=== PATIENT | female | born 1970 | race Caucasian/White ===

== ENCOUNTER 2017-01-08 08:07 | Inpatient (IN) ==
[2017-01-08] MEDS ORDERED: Albuterol 2.5 MG/3 ML NEBULIZER IH ONE ×2 (08:29→11:01)
[2017-01-08] MEDS ORDERED: Lidocaine -MPF 1% 2 ML VIAL ID ONE (08:29)
[2017-01-08] MEDS ORDERED: Ringers Solution, Lactated 1,000 ML IVC SCH ×2 (08:30→11:15)
[2017-01-08] MEDS ORDERED: Insulin Human Regular 10 UNIT in 0.9 % Sodium Chloride 10 ML IV ONE (08:41)
--- NOTE | 2017-01-08 09:07 | Anesthesia Evaluation PreOp ---
Date of Encounter: 01/08/17 Time of Encounter: 09:05 - Past History Planned Operation: MIHIR-BSO Cardiac History: MD (MD 2015), Cardiac Surgery (Cabg x 3 11/2015) Pulmonary History: Denies Any Significant HX MIX CHEMIST History: Denies Any Significant HX Other Medical History: Diabetes Type II Anesthesia History: No Prior Anesthetic Complications, Past Anesthesia : No Test: Negative (01/01/2017) Alcohol Use: none Drug use: none Medications and Allergies Aspirin [Lo-Dose Aspirin EC] 81 mg PO DAILY 11/28/16 [History] Atorvastatin Calcium [Lipitor] 80 mg PO HS 11/28/16 [History] Carvedilol [Coreg] 6.25 mg PO BIDWM 11/28/16 [History] Glimepiride [Amaryl] 2 mg PO 0800 11/28/16 [History] Lisinopril [Zestril] 5 mg PO DAILY 11/28/16 [History] Metformin HCl [Glucophage] 1,000 mg PO BID 11/28/16 [History] Nitroglycerin [Nitrostat] 0.4 mg SL Q5M PRN 11/28/16 [History] Sertraline [Zoloft] 50 mg PO DAILY 11/28/16 [History] Topiramate [Topamax] 25 mg PO BID 11/28/16 [History] Ibuprofen [Motrin] 600 mg PO Q6HR PRN 01/08/17 [History] Allergies formula, sp.metab. with iron,methionine-fr [From HCY 1 Powder] Adverse Reaction (Unverified 01/08/17 09:14) Anaphylaxis formula, special metabolic with iron [From HCY 1 Powder] Adverse Reaction (Unverified 01/08/17 09:14) Anaphylaxis - Meds/Allergy Pre-op Review Medications Reviewed: Yes Allergies Reviewed: Yes Beta Blockers on Current Med List: Yes Anesthesia Results - Labs Laboratory Tests 11/22/16 01/01/17 01/01/17 10:06 14:45 14:45 WBC 12.9 H Hgb 16.7 H Hct 50.9 H Plt Count 246 Sodium 138 Potassium 3.9 Chloride 104 Carbon Dioxide 23 BUN 6 L Creatinine 0.84 Hemoglobin A1c 8.4 H Serum , Qual 01/01/17 14:45 WBC Hgb Hct Plt Count Sodium Potassium Chloride Carbon Dioxide BUN Creatinine Hemoglobin A1c Serum , Qual Negative Stress echo 01/07/2027 No ischemia EF-60% - Imaging EKG: image reviewed (SR) Anesthesia Exam O2 Sat Height 1.68 m Height 1.68 m Weight 93.44 kg Weight 93.44 kg O2 Sat by Pulse Oximetry 97 O2 Sat by Pulse Oximetry 97 Vital Signs Temp Pulse Resp BP Pulse Ox 98.4 F 85 18 177/106 97 01/08/17 08:41 01/08/17 08:41 01/08/17 08:41 01/08/17 08:41 01/08/17 08:41 Blood glucose: 359 (232 after 10 u reg insulin) Height: 5'6'' Weight: 206# NPO (# of Hours): > 8 hrs Pain Scale: 0 Pain Scale Used: Numeric (1 - 10) - HEENT Pupil (Motor): Pupils equal, EOMI Mallampati: III Teeth: Poor dentition Oral Opening: Greater than 3 - MIX CHEMIST LOC: Oriented MIX CHEMIST Motor: Normal RUE, Normal LUE, Normal RLE, Normal LLE, Normal Face MIX CHEMIST Sensory: Normal: RUE, LUE, RLE, LLE, Face - Cardiac Rhythm: Regular Murmur: None JVD: No Carotid Bruit: No - Pulmonary Breath Sounds: bilateral Clear Respiratory Effort: Symmetrical Anesthesia Assess/Plan Modified Cem Scale for Level of Consciousness: Cooperative, oriented, and tranquil Anesthetic Plan: General Autologous Blood: Yes Monitoring Plan: Standard Monitors Recovery Plan: PACU
[2017-01-08] MEDS ORDERED: Lidocaine -MPF 4% 5 ML AMPUL ONE (09:10)
[2017-01-08] MEDS ORDERED: *HR* Propofol 200 MG/20 ML VIAL IVP ONE (09:10)
[2017-01-08] MEDS ORDERED: *HR* HYDROmorphone 2 MG/ML SYRINGE ONE (09:10)
[2017-01-08] MEDS ORDERED: Lidocaine -MPF 2% 2 ML VIAL ONE (09:10)
[2017-01-08] MEDS ORDERED: *HR* FentaNYL (PF) 100 MCG/2 ML VIAL ONE (09:10)
[2017-01-08] MEDS ORDERED: *HR* Rocuronium Bromide 50 MG/5 ML VIAL ONE ×2 (09:10→12:51)
[2017-01-08] MEDS ORDERED: *HR* Midazolam HCl 2 MG/2 ML VIAL ONE (09:10)
[2017-01-08] MEDS ORDERED: CeFAZolin Pre 2,000 MG/100 ML 2,000 MG/100 ML BAG IVPB ONE (09:51)
--- NOTE | 2017-01-08 09:59 | History & Physical Report ---
Date of Encounter: 01/08/17 Time of Encounter: 09:59 24 Hour HP Update - Instructions Instructions: If the History and Physical is less than 30 days old and was completed prior to A.M. admission and or procedure and has NOT been updated on calendar day of procedure please complete this update prior to performing procedure. - Update Patient reports changes in Medical Condition: No Changes in examination, assessment, or condition: No Changes in Medication: No Preop tests/diagnostics Reviewed: Yes Surgery Remains Indicated: Yes Consent for Planned Operative Procedure(s) Verified: Yes - Pre-Operative Checklist Preoperative Checklist Indicated: Yes Prophylactic Antibiotic Ordered: Yes Home Medications Include Beta Anibal: No Beta Anibal Taken Today (Day of Surgery): No Beta Anibal Taken Yesterday (Day Prior to Surgery): No Is VTE Prophylaxis Indicated?: Yes
[2017-01-08] MEDS ORDERED: Dexamethasone 4 MG/ML VIAL ONE (10:43)
[2017-01-08] MEDS ORDERED: Ondansetron 4 MG/2 ML VIAL ONE (10:43)
[2017-01-08] MEDS ORDERED: *HR* Labetalol 100 MG/20 ML MDV IVP PRN (11:01)
[2017-01-08] MEDS ORDERED: *HR* HYDROmorphone (PF) 1 MG/ML SYRINGE IVP PRN (11:01)
[2017-01-08] MEDS ORDERED: Naloxone 0.4 MG/ML INJ IVP PRN ×2 (11:01→14:44)
[2017-01-08] MEDS ORDERED: *HR* Meperidine 25 MG/ML SYRINGE IVP PRN (11:01)
[2017-01-08] MEDS ORDERED: Ondansetron 4 MG/2 ML VIAL IVP ONE (11:01)
[2017-01-08] MEDS ORDERED: Neostigmine Methylsulfate 3 MG/3 ML SYRINGE ONE (11:10)
--- NOTE | 2017-01-08 14:41 | OB/GYN Procedure Note ---
OB-SHIP LINER: Procedure - Diagnosis Date of procedure: 01/08/17 Pre-op diagnosis: pelvic pain, severe pelvic adhesions, hydrosalpinx, ovarian cyst Post-op diagnosis: same - Procedure Procedure: ABDI, RSO, cysto Surgeon: Bryan Paniagua Dramatic Art Teacher: Noam Schmidt Anesthesia Type: General Estimated blood loss (cc): 50 Fluids: crystalloid Procedure Complications: none Specimens collected: right ovary, cyst and tube, uterus, partial left tube Disposition: floor Findings: severe pelvic adhesions connecting bowel to uterus, ovaries and tubes , large right ovarian cyst, bilateral hydrosalpinx, bladder adherent to uterus Narrative: The patient was placed in the dorsal lithotomy position after an adequate level of general anesthesia was obtained and after appropriate informed consent had been obtained. The Anthony was draining clear urine from the bladder. After the patient was prepped and draped in the usual sterile manner, a Pfannenstiel incision was made and the subcutaneous tissue was incised until the level of the rectus fascia was reached. A nkechi was made in the fascia. This was extended the length of the incision using Alvarado scissors. The recti muscles were to gain adequate entry into the abdomen. We explored the abdomen. The bowels grossly appeared normal. There was a large ovarian cyst that was noted up to the abdomen. I explored the pelvic region to feel for the uterus. The uterus was noted to be very adherent to the bladder. I also noted that she had bilateral hydrosalpinx and the left ovary was severely adherent to the side wall. There were multiple adhesions communicating with the bowel on the right ovary as well. The Adri Lim retractor was set up before the hysterectomy was started. A emily clamp was placed at the base of the ovarian cyst along with the ovary. The ligasure device was then clamped at the IP ligament and the ovary/cyst was coagulated and cut. The specimen was sent to the pathologist. At this point, we were able to get more visualization into the pelvis to perform the hysterectomy. The right tube and the right round ligament was clamped with the Ligasure device , coagulated and cut. The anterior leaf of the broad ligament was cut using Metzenbaum scissors. I tried to dissect the bladder that was adherent to the anterior aspect of the uterus but I was unable to despite multiple attempts. I turned my attention to the left side. The ligasure device was clamped on the round ligament, coagulated and cut. A window was made on the broad ligament and the utero-ovarian ligament along with the tube was clamped, cut and coagulated freeing the ovaries. I tried to dissect off the bladder but I was unsuccessful. I decided that it will be best to perform a supracervical hysterectomy. The uterine arteries were then skeletonized, clamped at the level of the cervical os using the Ligasure device and cut. The cervix was then amputated and figure of eight sutures of 0-vicryl was used to obtain hemostasis. I performed a cystoscopy after injecting methylene blue but after 30mins, I could not visualize ureteral jets. I called Dr Newell from Urology. He came in and used a guided wire to check patency of the ureters which he confirmed. Please see his note for details. We then turned our attention again to the abdomen. The retractor was removed. The laps were counted and noted to be correct. The muscles were reapproxaimted with 3-0 vicryl. The fascia was closed with 0-vicryl, the subcutaneous tissue was closed with 3-0 vicryl. The skin was closed with santi. The patient tolerated the procedure well and was taken to the recovery room in stable condition.
--- NOTE | 2017-01-08 16:23 | Anesthesia Evaluation Post Op ---
Date of Encounter: 01/08/17 Time of Encounter: 16:21 - Vital Signs Vital Signs: Vital Signs/O2 Sat, Most Current Temp Pulse Resp BP Pulse Ox 97.2 F L 87 20 151/89 95 01/08/17 15:55 01/08/17 16:15 01/08/17 16:15 01/08/17 16:15 01/08/17 16:20 - Lungs Lungs: Clear Ascult./Percussion - Airway Airway: Non-obstructed - Cardiovascular Regular Rate - Mental Status Mental Status: Alert & Oriented, Answers Appropriately - Pain Pain Scale: 0 Pain Scale used: Numeric (1 - 10) - Nausea Vomiting Nausea Vomiting: Not Present - Hydration Hydration: Ice chips, Anthony catheter - Discharge PostOp Status: Transfer Patient to floor
[2017-01-08] MEDS ORDERED: Insulin LISPRO 300 UNITS/3 ML VIAL SQ ONE (18:36)
[2017-01-08] MEDS: *HR* HYDROmorphone 2 MG/ML SYRINGE IVP PRN ×2 (20:09→23:57)
[2017-01-08] MEDS ORDERED: Insulin LISPRO 300 UNITS/3 ML VIAL SQ STA (20:27)
--- NOTE | 2017-01-08 21:33 | Operative Note ---
Date of procedure: 01/08/17 Pre-op diagnosis: Concern for ureteral injury Post-op diagnosis: other (No ureteral injury) Procedure: Cystoscopy with bilateral ureteral catheterization Anesthesia: GETA Surgeon: Baldev Newell Estimated blood loss (cc): 0 Specimen: None Condition: stable Disposition: PACU Procedure in Detail: Intraoperative consult I was contacted by Dr. Paniagua during a open hysterectomy because no methylene blue was seen effluxing from the right ureteral orifice. He reports that he did not feel that the ureter was compromised during the procedure. When an in the room the patient was in dorsal lithotomy the abdomen was covered. I placed a 21 Indonesian cystoscope into the urethra with a 30 lens. I carefully examined the entire bladder. There was no evidence of lateral injury, perforation, hemorrhage. There was no blood emanating from either ureteral orifice. I placed a 5 Indonesian ureteral catheter in the left ureteral orifice and it passed without resistance up to the level suspect was the renal pelvis. I felt no injury was present on the left side. I repeated the procedure on the right side. Again the right ureteral catheter passed without resistance up to the level of what I felt was the renal pelvis. Dr. Schmidt examined the pelvis and did not visualize the ureteral catheter and palpated it within the ureter. At this point I felt that further exploration was unnecessary. The catheter was reinserted and the case was turned back over to Dr. Paniagua.
[2017-01-09 04:06] LABS: Basophils % 0.2 %; Red Cell Distribution Width 14.3 % (11.5-14.5)
[2017-01-09 04:08] LABS: Basophils # 0.1 K/mcL (0.0-0.2); Hematocrit 45.4 % (35.3-44.9); Hemoglobin 14.8 g/dL (11.5-15.4); Immature Granulocytes % 0.9 % (0-4); Lymphocytes # 1.9 K/mcL (0.6-4.6); Lymphocytes % 6.7 %; Mean Corpuscular HGB Conc 32.6 g/dL (31.6-35.5); Mean Corpuscular Hemoglobin 29.4 pg (28.0-33.3); Mean Corpuscular Volume 90.3 fL (83.0-100.0); Monocytes # 1.9 K/mcL (0.0-1.3); Neutrophils # 23.5 K/mcL (1.6-8.9); Platelet Count 250 K/mcL (140-400); Red Blood Count 5.03 M/mcL (3.82-4.97); Segmented Neutrophils % 85.2 %
[2017-01-09] MEDS: *HR* HYDROmorphone 2 MG/ML SYRINGE IVP PRN (04:25)
[2017-01-09 04:36] LABS: Platelet Estimate Normal (Normal)
[2017-01-09] MEDS: *HR* OxyCODONE/APAP 5/325 TABLET PO PRN ×3 (06:59→13:34)
--- NOTE | 2017-01-09 07:56 | OB/GYN Progress Note ---
Date of Encounter: 01/09/17 Time of Encounter: 07:53 - Assessment and Plan (1) Status post abdominal supracervical subtotal hysterectomy Current Visit: Yes Status: Acute patient counseled on not taking mountain dew any more because of her sugars, consult placed to the Hospitalist for sugar control, Metformin 100mg BID started with Novolog 10U to correct her sugars with breakfast, cont current pain regimen will remove dressing tomorrow, cont current inpt care Subjective - Subjective Interval history: saw patient this AM, doing well, jacobsen is out, she is ambulating, pain is under control, sugars were high overnight(highest in the 300's), patient was found to have Mountain Dew, I gave her 30 U of Novolog overnight which brought her sugars to 206 this AM, tolerating PO liquids this AM Objective - Vital Signs Latest vital signs: Vital Signs Temp Pulse Pulse Resp BP Pulse Ox 01/09/17 04:09 98.2 F 88 14 147/95 95 01/08/17 23:55 98.1 F 80 16 143/91 94 01/08/17 22:08 102 158/90 01/08/17 20:20 98.3 F 82 14 162/97 93 01/08/17 18:45 98.0 F 85 16 144/91 93 01/08/17 17:45 98.6 F 88 88 16 146/92 93 01/08/17 17:15 98.7 F 84 84 16 134/87 92 01/08/17 16:46 85 16 01/08/17 16:45 98.7 F 89 16 137/86 92 01/08/17 16:35 81 16 135/87 92 01/08/17 16:25 97.8 F 89 18 138/86 92 01/08/17 16:15 87 20 151/89 90 01/08/17 16:05 89 18 138/99 92 01/08/17 15:55 97.2 F L 89 18 148/90 100 01/08/17 15:45 90 18 142/98 89 01/08/17 15:35 90 20 158/99 91 01/08/17 15:25 97.4 F L 84 18 131/88 90 01/08/17 15:15 80 18 143/95 90 01/08/17 15:05 79 20 142/94 94 01/08/17 14:55 97.9 F 75 22 147/96 94 01/08/17 14:45 74 16 127/82 93 01/08/17 14:35 73 20 127/81 93 01/08/17 14:25 97.4 F L 76 16 143/88 93 01/08/17 08:41 98.4 F 85 18 177/106 97 Intake and Output 01/08/17 01/08/17 01/09/17 15:59 23:59 07:59 Intake Total 100 / 100 600 / 600 Output Total 250 / 250 100 / 100 485 / 485 Balance -150 / -150 -100 / -100 115 / 115 Intake: IV Fluids 100 / 100 300 / 300 Lactated Ringers 1,000 ML 300 / 300 @ 25 mls/hr IVC .Q24H ABDI Rx#:[id number] Ancef Premix 2,000 MG/100 100 / 100 ML 2,000 mg In 100 ml @ 200 mls/hr IVPB PREOP ONE Rx#:[id number] Oral 300 / 300 Output: Urine 15 / 15 Estimated Blood Loss 50 / 50 Urine Amount (Catheter) 200 / 200 100 / 100 Catheter 470 / 470 Other: Weight 93.44 kg 94.9 kg 92.896 kg Blood Glucose* 313 272 201 Patient Weight 01/09/17 23:59 Weight 92.896 kg - I&O's I&O's: Intake & Output 01/06/17 01/07/17 01/08/17 01/09/17 23:59 23:59 23:59 23:59 Intake Total 100 / 100 600 / 600 Output Total 350 / 350 485 / 485 Balance -250 / -250 115 / 115 Weight 94.9 kg 92.896 kg - Exam Lungs: bilateral: normal Chest: Normal S1, Normal S2 Extremities: Present: normal Abdomen: Present: other Incision OB: Present: dressed Comments: abdominal binder on - Labs Labs: Abnormal lab results WBC 27.6 K/mcL (4.3-11.1) H 01/09/17 03:49 RBC 5.03 M/mcL (3.82-4.97) H 01/09/17 03:49 Hct 45.4 % (35.3-44.9) H 01/09/17 03:49 Neutrophils # 23.5 K/mcL (1.6-8.9) H 01/09/17 03:49 Monocytes # 1.9 K/mcL (0.0-1.3) H 01/09/17 03:49 POC Glucose 201 (58-89) H 01/09/17 06:21 Consult Discharge Plan - Plan Referrals: Mireya Yoo, ROSY [Primary Care Provider] -
[2017-01-09] MEDS ORDERED: *HR* Metformin 500 MG TABLET PO SCH ×2 (08:00)
[2017-01-09] MEDS ORDERED: Dextrose Gel 15 GM PO PRN ×2 (08:18)
[2017-01-09] MEDS ORDERED: *HR* Dextrose 50 % in Water (Syg) 50 ML SYRINGE IVP PRN (08:18)
[2017-01-09] MEDS ORDERED: D5% in Water 1,000 ML IVC PRN (08:18)
--- NOTE | 2017-01-09 08:22 | Internal Medicine Consult Note ---
Date of Encounter: 01/09/17 Time of Encounter: 08:30 - Assessment and Plan (1) Diabetes mellitus Current Visit: Yes Status: Acute Assessment and plan: Patient with poorly controlled diabetes mellitus type 2, hemoglobin A1c 8.4 in December 2016. She only takes metformin 1500 twice daily and glimepiride 2 mg in the morning. Never used insulin in the past. She reports her sugar usually runs in the 200s range but goes up to 300s many times. She is agreeable to start eating better and using insulin if necessary. Start levemir 10 units bid, and ISS. continue diabetic diet. hold on metformin and glimepiride while inpatient. consult residential sales associate. check BMP, magnesium. Qualifiers: Diabetes mellitus type: type 2 Diabetes mellitus complication status: with hyperglycemia Diabetes mellitus senior living insulin use: without intermodal dispatcher use Qualified Code(s): E11.65 - Type 2 diabetes mellitus with hyperglycemia (2) Atelectasis Current Visit: Yes Status: Acute Assessment and plan: due to abdominal surgery. Patient has crackles in both bases and is requiring 2L NC, I will start duonebs tid and continue incentive spirometry q2hr. will consider CXR if unable to wean off oxygen. (3) CAD (coronary artery disease) Current Visit: Yes Status: Chronic Assessment and plan: continue home meds. Qualifiers: Coronary Disease-Associated Artery/Lesion type: bypass graft, autologous artery Associated angina: without angina Qualified Code(s): I25.810 - Atherosclerosis of coronary artery bypass graft(s) without angina pectoris (4) Tobacco use Current Visit: Yes Status: Chronic Assessment and plan: counseled to quit done. she agrees on quitting but declines nicotine patch because she used it before and it kept falling off from her skin. may need outpatient PFTs. Internal Medicine - CN: HPI - Data of Consult Consult date: 01/09/17 Requesting Physician: Bryan Paniagua MD - Consult Narrative Reason for consult: DM History of present illness: Ms. Da Silva is a 46 year old female with past medical history of diabetes, CAD status post CABG 3 in November 2015, hypertension and tobacco use. Patient underwent ABDI, RSO, and cystoscopy on 01/08/2017 without complications. Hospitalist service is consulted because of elevated glucose levels. Patient with known diabetes mellitus type 2 poorly controlled with hemoglobin A1c 8.4 in December 2016. She only takes metformin 1500 twice daily and glimepiride 2 mg in the morning. Never used insulin in the past. She reports her sugar usually runs in the 200s range at home. Her only complain is mild abdominal pain that is expected after surgery. No nausea, no vomiting, no diarrhea, No chest pain, no shortness of breath, no cough, no fever, no focal deficit, no lower extremity edema, no bleeding. Past Med Surg Social Fam HX - Past Medical History Medical history: coronary artery disease, diabetes, hyperlipidemia, hypertension , myocardial infarction, other Psychiatric history: no psych history - Past Surgical History Surgical History: cholecystectomy, coronary bypass (CABG), knee replacement, other - Social History Smoking Status: Current every day smoker (1/2 PPD) Packs per day: 0.5ppd Smokeless Tobacco Status: No Alcohol use: none Drug use: none - Family History Grandmother Hx Family Endocrine Disorder: Yes (DM) All systems: reviewed and no additional remarkable complaints except as stated Internal Medicine - CN: Meds Aspirin [Lo-Dose Aspirin EC] 81 mg PO DAILY 11/28/16 [History] Atorvastatin Calcium [Lipitor] 80 mg PO HS 11/28/16 [History] Carvedilol [Coreg] 6.25 mg PO BIDWM 11/28/16 [History] Glimepiride [Amaryl] 2 mg PO 0800 11/28/16 [History] Lisinopril [Zestril] 5 mg PO DAILY 11/28/16 [History] Metformin HCl [Glucophage] 1,000 mg PO BID 11/28/16 [History] Nitroglycerin [Nitrostat] 0.4 mg SL Q5M PRN 11/28/16 [History] Sertraline [Zoloft] 50 mg PO DAILY 11/28/16 [History] Topiramate [Topamax] 25 mg PO BID PRN 11/28/16 [History] Ibuprofen [Motrin] 600 mg PO Q6HR PRN 01/08/17 [History] Allergies formula, sp.metab. with iron,methionine-fr [From HCY 1 Powder] Adverse Reaction (Unverified 01/08/17 09:14) Anaphylaxis formula, special metabolic with iron [From HCY 1 Powder] Adverse Reaction (Unverified 01/08/17 09:14) Anaphylaxis Internal Medicine - CN: Exam - Constitutional Vitals: Temp Pulse Resp BP Pulse Ox 98.2 F 88 14 147/95 95 01/09/17 04:09 01/09/17 04:09 01/09/17 04:09 01/09/17 04:09 01/09/17 04:09 General appearance IM: Present: cooperative, A&O X 3, pleasant, no acute distress, answers questions appropriately - Head Head exam: Present: atraumatic - Eye Eye exam: Present: PERRL, sclera anicteric - ENT ENT exam: Present: mucous membranes moist - Neck Neck exam general surgery: Present: supple, trachea midline. Absent: lymphadenopathy - Respiratory Respiratory exam: Present: rales (bibasal crackles) - Cardiovascular Cardiovascular exam IM: Present: RRR - GI/Abdominal GI/Abdominal exam IM: Present: soft, tenderness (expected mild tenderness. abdomen covered by dressing). Absent: distended - Extremities Exam Extremities exam IM: Absent: pedal edema - Back Exam Back exam: Absent: CVA tenderness (L), CVA tenderness (R) - Neurological Exam Neurological exam: Present: alert, oriented X3, no focal deficits, strengths equal and symetr throughout. Absent: facial droop, speech deficit - Skin Skin exam IM: Absent: rash Internal Medicine - CN: Reslt - Labs CBC & Chem 7: 01/09/17 03:49 Labs: Short CBC 01/09/17 Range/Units 03:49 WBC 27.6 H (4.3-11.1) K/mcL Hgb 14.8 (11.5-15.4) g/dL Hct 45.4 H (35.3-44.9) % Plt Count 250 (140-400) K/mcL Neutrophils # 23.5 H (1.6-8.9) K/mcL Consult Discharge Plan - Plan Referrals: Mireya Yoo, CERAMIC COATER MACHINE [Primary Care Provider] -
[2017-01-09] MEDS ORDERED: Insulin NPH/REG 70/30 100 UNIT/ML (x5UNIT) SQ ONE (08:23)
[2017-01-09] MEDS ORDERED: Albuterol 2.5 MG/3 ML NEBULIZER IH PRN (08:59)
[2017-01-09] MEDS ORDERED: Insulin DETEMIR 100 UNIT/ML X5UNITS SQ SCH (09:00)
[2017-01-09] MEDS: Insulin LISPRO 300 UNITS/3 ML VIAL SQ SCH ×3 (09:00→17:10)
[2017-01-09] MEDS: Ibuprofen 600 MG TABLET PO PRN ×2 (13:34→20:15)
[2017-01-09] MEDS: Ipratropium/Albuterol Neb 3 ML IH SCH ×2 (17:44→17:48)
[2017-01-09] MEDS: *HR* OxyCODONE/APAP 10/325 TABLET PO PRN ×2 (18:10→22:09)
[2017-01-09] MEDS ORDERED: Insulin LISPRO 300 UNITS/3 ML VIAL SQ SCH (21:00)
[2017-01-09] MEDS: Insulin DETEMIR 100 UNIT/ML X5UNITS SQ SCH (21:02)
[2017-01-10] MEDS: Ipratropium/Albuterol Neb 3 ML IH SCH ×2 (02:09→10:31)
[2017-01-10] MEDS: *HR* OxyCODONE/APAP 10/325 TABLET PO PRN ×4 (02:13→20:05)
[2017-01-10] MEDS: Ibuprofen 600 MG TABLET PO PRN (02:14)
[2017-01-10 06:07] LABS: Basophils % 0.3 %; Eosinophils # 0.2 K/mcL (0.0-0.6); Eosinophils % 1.1 %; Hematocrit 41.2 % (35.3-44.9); Hemoglobin 13.4 g/dL (11.5-15.4); Immature Granulocytes % 0.8 % (0-4); Lymphocytes # 2.8 K/mcL (0.6-4.6); Lymphocytes % 18.4 %; Mean Corpuscular HGB Conc 32.5 g/dL (31.6-35.5); Mean Corpuscular Hemoglobin 29.6 pg (28.0-33.3); Mean Corpuscular Volume 91.2 fL (83.0-100.0); Mean Platelet Volume 11.3 fL (9.4-12.4); Monocytes # 1.6 K/mcL (0.0-1.3); Monocytes % 10.1 %; Neutrophils # 10.7 K/mcL (1.6-8.9); Platelet Count 205 K/mcL (140-400); Red Blood Count 4.52 M/mcL (3.82-4.97); Red Cell Distribution Width 14.4 % (11.5-14.5); Segmented Neutrophils % 69.3 %
[2017-01-10 06:27] LABS: Alanine Aminotransferase 14 Units/L (0-55); Albumin 2.9 g/dL (3.5-5.0); Albumin/Globulin Ratio 0.8 (1.1-2.2); Alkaline Phosphatase 121 Units/L (38-126); Aspartate Amino Transferase 11 Units/L (5-34); BUN/Creatinine Ratio 11 (6-26); Bilirubin,Total 0.6 mg/dL (0.2-1.2); Blood Urea Nitrogen 10 mg/dL (7-20); Calcium 8.9 mg/dL (8.6-10.8); Carbon Dioxide 26 mEq/L (19-29); Chloride 102 mEq/L (98-109); Globulin 3.6 g/dL (2.4-3.5); Glucose 307 mg/dL (70-99); Magnesium 1.4 mg/dL (1.6-2.6); Osmolality,Calculated 293 (280-300); Potassium 3.5 mEq/L (3.5-4.5); Sodium 136 mEq/L (136-145); Total Protein 6.5 g/dL (6.0-8.3); eGFR For African Americans > 60 (> 60); eGFR For Non-African Americans > 60 (> 60)
--- NOTE | 2017-01-10 07:42 | OB/GYN Progress Note ---
Date of Encounter: 01/11/17 Time of Encounter: 07:37 - Assessment and Plan (1) Status post abdominal supracervical subtotal hysterectomy Current Visit: Yes Status: Acute nursing tells me the patient is still hiding mountain dew, I have counseled her again about not taking the mountain dew, appreciate hospitalist consult, cont current inpt care, cont use of incentive spirometer, cont cont inpt care, ambulation encouraged Subjective - Subjective Interval history: saw patient, pain is under control, nurses say she continues to drink mountain dew despite counseling that her sugar is not under control. The hospitalist saw her and placed her on insulin, bandage removed, had to be placed on oxygen overnight because her oxygen sats dropped to the 80's. Patient reports: appetite normal, voiding normally, pain well controlled, ambulating normally Objective - Vital Signs Latest vital signs: Vital Signs Temp Pulse Resp BP Pulse Ox 01/10/17 05:14 97.7 F 74 18 138/89 98 01/10/17 05:00 18 01/10/17 02:10 18 96 01/09/17 23:46 98.0 F 86 16 147/95 97 01/09/17 20:50 98.3 F 83 14 150/96 94 01/09/17 19:59 91 93 01/09/17 17:50 16 96 01/09/17 16:55 98.4 F 83 18 162/100 92 01/09/17 12:00 98.3 F 82 18 166/93 94 01/09/17 09:00 97.7 F 90 18 152/92 95 Intake and Output 01/09/17 01/09/17 01/10/17 15:59 23:59 07:59 Intake Total 450 / 450 300 / 300 Output Total 200 / 200 1000 / 1000 600 / 600 Balance 250 / 250 -700 / -700 -600 / -600 Intake: Oral 450 / 450 300 / 300 Output: Urine 200 / 200 1000 / 1000 600 / 600 Other: Weight 95.028 kg Blood Glucose* 224 235 246 Patient Weight 01/10/17 23:59 Weight 95.028 kg - I&O's I&O's: Intake & Output 01/07/17 01/08/17 01/09/17 01/10/17 23:59 23:59 23:59 23:59 Intake Total 100 / 100 1350 / 1350 Output Total 350 / 350 1685 / 1685 600 / 600 Balance -250 / -250 -335 / -335 -600 / -600 Weight 94.9 kg 92.896 kg 95.028 kg - Exam Lungs: bilateral: crackles/rales Chest: Normal S1, Normal S2 Extremities: Present: normal Abdomen: Present: soft Incision OB: Present: intact - Labs Labs: Abnormal lab results WBC 15.4 K/mcL (4.3-11.1) H 01/10/17 05:50 Neutrophils # 10.7 K/mcL (1.6-8.9) H 01/10/17 05:50 Monocytes # 1.6 K/mcL (0.0-1.3) H 01/10/17 05:50 Glucose 307 mg/dL (70-99) H 01/10/17 05:50 POC Glucose 242 (58-89) H 01/10/17 07:31 Magnesium 1.4 mg/dL (1.6-2.6) L 01/10/17 05:50 Albumin 2.9 g/dL (3.5-5.0) L 01/10/17 05:50 Globulin 3.6 g/dL (2.4-3.5) H 01/10/17 05:50 Albumin/Globulin Ratio 0.8 (1.1-2.2) L 01/10/17 05:50 Consult Discharge Plan - Plan Referrals: Mireya Yoo CNP [Primary Care Provider] - Prescriptions: Ibuprofen [Motrin] 600 mg PO Q6HR PRN #60 tab PRN Reason: Pain OxyCODONE/APAP 5/325 [Percocet 5/325 MG] 1 each PO Q6HR PRN #60 tablet PRN Reason: Severe Pain metFORMIN [Glucophage] 1,000 mg PO BIDWM #60 tablet Oxycodone HCl/Acetaminophen [Percocet 5-325 mg Tablet] 1 each PO Q4-6H PRN #60 tablet PRN Reason: Severe Pain
[2017-01-10] MEDS: Insulin LISPRO 300 UNITS/3 ML VIAL SQ SCH ×3 (08:08→16:44)
[2017-01-10] MEDS: Insulin DETEMIR 100 UNIT/ML X5UNITS SQ SCH (09:12)
--- NOTE | 2017-01-10 10:41 | Internal Med Progress Note ---
<Norris Solorio - Last Filed: 01/10/17 10:38> Date of Encounter: 01/10/17 Time of Encounter: 09:00 - Assessment and plan (1) Diabetes mellitus Current Visit: Yes Status: Acute Assessment and plan: Patient with poorly controlled diabetes mellitus type 2, hemoglobin A1c 8.4 on January 01, 2017. She only takes metformin 1500 twice daily and glimepiride 2 mg in the morning. She states that her Metformin was increased since she was found to have an elevated A1c (1 week ago). She reports her sugar usually runs in the 200s range but goes up to 300s many times. She is agreeable to start eating better and using insulin if necessary. Diabetic diet Increase levemir to 20 units Start medium dose sliding scale hold on metformin and glimepiride while inpatient Recommend restarting home diabetic medications on discharge Recommend follow up with PCP in 1 week for re-evaluation of patient blood sugar Will give PO magnesium Recommend electrolytes and magnesium in 1 week prior to seeing her PCP consult diabetic educator Will sign off, would be happy to reconsult if needed Qualifiers: Diabetes mellitus type: type 2 Diabetes mellitus complication status: with hyperglycemia Diabetes mellitus superintendent terminal insulin use: without care home use Qualified Code(s): E11.65 - Type 2 diabetes mellitus with hyperglycemia (2) Status post abdominal supracervical subtotal hysterectomy Current Visit: Yes Status: Acute Assessment and plan: Patient underwent supracervical hysterectomy with bilateral salpingo- oophorectomy on 01/08/17. Low transverse incision is closed with santi, appears intact, clean, without erythema or induration. Dressed. (3) Atelectasis Current Visit: Yes Status: Acute Assessment and plan: Mild bibasilar Rales auscultated, likely due to recent hysterectomy. Patient has successfully weaned off supplemental oxygen and is on room air. Continue incentive spirometry Continue breathing treatments (4) CAD (coronary artery disease) Current Visit: Yes Status: Chronic Assessment and plan: Continue home medications Qualifiers: Coronary Disease-Associated Artery/Lesion type: bypass graft, autologous artery Associated angina: without angina Qualified Code(s): I25.810 - Atherosclerosis of coronary artery bypass graft(s) without angina pectoris (5) Tobacco use Current Visit: Yes Status: Chronic Assessment and plan: Patient previously counseled on smoking cessation, patient previously denied nicotine patch. - Subjective Interval history: Patient seen and examined this morning. She is comfortable, but reports that she is still having pain in her lower abdomen where she has the incision from her hysterectomy. She reports that she is feeling well without any nausea/ vomiting. She reports that she has not had any bowel movements yet, but does report that she has been passing some gas. She denies any polydipsia or polyuria. Denies chest pain or shortness of breath, denies fevers or chills. - Constitutional Vitals: Temp Pulse Resp BP Pulse Ox 97.9 F 66 16 143/91 95 01/10/17 07:45 01/10/17 07:45 01/10/17 10:34 01/10/17 07:45 01/10/17 10:34 General appearance: Present: cooperative, A&O X 3, pleasant, no acute distress, answers questions appropriately Exam: General: Cooperative, pleasant, no acute distress, alert and oriented 3, answers questions appropriately HEENT: Normocephalic, atraumatic, Conjunctiva pink, sclera anicteric, oral mucosa moist, no orophargeal erythema or exudates Respiratory: No accessory muscle usage, slight bibasilar rales Cardiovascular: Regular rate and rhythm, S1 and S2 present, no murmurs/rubs/ gallops/clicks appreciated GI/abdominal: Nondistended, mild diffuse tenderness to palpation, low transverse surgical incision closed with santi, intact and dry, dressed with gauze., soft, normal bowel sounds, no peritoneal signs Extremities: No calf tenderness, noncyanotic, no pedal edema appreciated, warm, lower extremity pulses palpable and symmetrical Neurological: Alert and oriented 3, no facial droop, no focal deficits Skin: Dry, intact, normal color Internal Medicine: Result - Labs CBC & Chem 7: 01/10/17 05:50 01/10/17 05:50 Labs: Short CBC 01/10/17 Range/Units 05:50 WBC 15.4 H (4.3-11.1) K/mcL Hgb 13.4 (11.5-15.4) g/dL Hct 41.2 (35.3-44.9) % Plt Count 205 (140-400) K/mcL Neutrophils # 10.7 H (1.6-8.9) K/mcL BMP 01/10/17 05:50 Sodium 136 Potassium 3.5 Chloride 102 Carbon Dioxide 26 BUN 10 Creatinine 0.89 Glucose 307 H Calcium 8.9 Liver Function 01/10/17 Range/Units 05:50 Total Bilirubin 0.6 (0.2-1.2) mg/dL AST 11 (5-34) Units/L ALT 14 (0-55) Units/L Alkaline Phosphatase 121 (38-126) Units/L Albumin 2.9 L (3.5-5.0) g/dL - VTE Documentation of Mechanical Device: Intermittent pneumatic compression device Consult Discharge Plan - Plan Referrals: Mireya Yoo, BUFFING WHEEL INSPECTOR [Primary Care Provider] - <Daquan Munoz - Last Filed: 01/10/17 15:36> Date of Encounter: 01/10/17 - Constitutional Vitals: Temp Pulse Resp BP Pulse Ox 98.1 F 73 94 152/92 95 01/10/17 11:25 01/10/17 11:25 01/10/17 11:25 01/10/17 11:25 01/10/17 10:34 Internal Medicine: Result - Labs CBC & Chem 7: 01/10/17 05:50 01/10/17 05:50 Labs: Short CBC 01/10/17 Range/Units 05:50 WBC 15.4 H (4.3-11.1) K/mcL Hgb 13.4 (11.5-15.4) g/dL Hct 41.2 (35.3-44.9) % Plt Count 205 (140-400) K/mcL Neutrophils # 10.7 H (1.6-8.9) K/mcL BMP 01/10/17 05:50 Sodium 136 Potassium 3.5 Chloride 102 Carbon Dioxide 26 BUN 10 Creatinine 0.89 Glucose 307 H Calcium 8.9 Liver Function 01/10/17 Range/Units 05:50 Total Bilirubin 0.6 (0.2-1.2) mg/dL AST 11 (5-34) Units/L ALT 14 (0-55) Units/L Alkaline Phosphatase 121 (38-126) Units/L Albumin 2.9 L (3.5-5.0) g/dL - Attending Attestation I examined this patient and my medical decision-making was reviewed with the PRICE CHANGER/PA/Advanced Practice Nurse/Resident Physician. I agree with the documented findings, disposition and treatment plan as described except to the extent set forth below. Resume antihypertensive meds. Insulin therapy while inpatient. D/w patient, D/W nursing staff. Agree with Dr. Solorio.
[2017-01-10] MEDS ORDERED: Insulin LISPRO 300 UNITS/3 ML VIAL SQ SCH (11:10)
[2017-01-10] MEDS ORDERED: Insulin DETEMIR 100 UNIT/ML X5UNITS SQ SCH (11:10)
[2017-01-10] MEDS ORDERED: Magnesium Oxide 400 MG TABLET PO SCH (11:15)
[2017-01-10] MEDS ORDERED: Aspirin 81 MG TAB.CHEW PO SCH (14:45)
[2017-01-11] MEDS: Ipratropium/Albuterol Neb 3 ML IH SCH ×2 (01:02→01:46)
[2017-01-11] MEDS: Ibuprofen 600 MG TABLET PO PRN (01:26)
[2017-01-11] MEDS: *HR* OxyCODONE/APAP 10/325 TABLET PO PRN (01:30)
--- NOTE | 2017-01-11 07:59 | Discharge Summary ---
Date of Encounter: 01/11/17 Time of Encounter: 08:54 - Discharge Diagnosis (1) Status post abdominal supracervical subtotal hysterectomy Priority: Primary Status: Acute Comments: I counseled the patient about adequate sugar control, I've sent a script for Metformin 1000mg BID which is what she takes at home. I've counseled her to call me if her sugars are high. I've also counseled her to call and set a appt with her PCP who manages her diabetes. I have counseled her extensively about the need to be vigilant with her sugars to reduce the risk of infection. Appointments have been made for her to come to the office next Friday to remove her santi, 2 weeks for incision check and 6 weeks for post op visit. I've sent scripts for Percocet and Motrin for pain control. Ok for discharge today. - Discharge Medications Prescriptions: Ibuprofen [Motrin] 600 mg PO Q6HR PRN #60 tab PRN Reason: Pain OxyCODONE/APAP 5/325 [Percocet 5/325 MG] 1 each PO Q6HR PRN #60 tablet PRN Reason: Severe Pain metFORMIN [Glucophage] 1,000 mg PO BIDWM #60 tablet Oxycodone HCl/Acetaminophen [Percocet 5-325 mg Tablet] 1 each PO Q4-6H PRN #60 tablet PRN Reason: Severe Pain Home Medications: Aspirin [Lo-Dose Aspirin EC] 81 mg PO DAILY 11/28/16 [History] Atorvastatin Calcium [Lipitor] 80 mg PO HS 11/28/16 [History] Carvedilol [Coreg] 6.25 mg PO BIDWM 11/28/16 [History] Glimepiride [Amaryl] 2 mg PO 0800 11/28/16 [History] Lisinopril [Zestril] 5 mg PO DAILY 11/28/16 [History] Metformin HCl [Glucophage] 1,000 mg PO BID 11/28/16 [History] Nitroglycerin [Nitrostat] 0.4 mg SL Q5M PRN 11/28/16 [History] Sertraline [Zoloft] 50 mg PO DAILY 11/28/16 [History] Topiramate [Topamax] 25 mg PO BID PRN 11/28/16 [History] Ibuprofen [Motrin] 600 mg PO Q6HR PRN 01/08/17 [History] Ibuprofen [Motrin] 600 mg PO Q6HR PRN #60 tab 01/11/17 [Rx] OxyCODONE/APAP 5/325 [Percocet 5/325 MG] 1 each PO Q6HR PRN #60 tablet 01/11/17 [Rx] Oxycodone HCl/Acetaminophen [Percocet 5-325 mg Tablet] 1 each PO Q4-6H PRN #60 tablet 01/11/17 [Rx] metFORMIN [Glucophage] 1,000 mg PO BIDWM #60 tablet 01/11/17 [Rx] Allergies/Adverse Reactions: Allergies baby powder Allergy (Uncoded 01/09/17 20:15) Anaphylaxis Data Procedures and tests throughout hospitalization: Laboratory Tests 01/08/17 01/08/17 01/08/17 08:34 09:23 10:10 WBC RBC Hgb Hct MCV MCH MCHC RDW Plt Count MPV Immature Gran % Seg Neutrophils % Lymphocytes % Monocytes % Eosinophils % Basophils % Neutrophils # Lymphocytes # Monocytes # Eosinophils # Basophils # Platelet Estimate Sodium Potassium Chloride Carbon Dioxide BUN Creatinine Est GFR ( Amer) Est GFR (Non-Af Amer) BUN/Creatinine Ratio Glucose POC Glucose 359 H 232 H 170 H Calculated Osmolality Calcium Magnesium Total Bilirubin AST ALT Alkaline Phosphatase Serum Total Protein Albumin Globulin Albumin/Globulin Ratio 01/08/17 01/08/17 01/08/17 14:29 17:51 17:52 WBC RBC Hgb Hct MCV MCH MCHC RDW Plt Count MPV Immature Gran % Seg Neutrophils % Lymphocytes % Monocytes % Eosinophils % Basophils % Neutrophils # Lymphocytes # Monocytes # Eosinophils # Basophils # Platelet Estimate Sodium Potassium Chloride Carbon Dioxide BUN Creatinine Est GFR ( Amer) Est GFR (Non-Af Amer) BUN/Creatinine Ratio Glucose POC Glucose 313 H 357 H 322 H Calculated Osmolality Calcium Magnesium Total Bilirubin AST ALT Alkaline Phosphatase Serum Total Protein Albumin Globulin Albumin/Globulin Ratio 01/08/17 01/08/17 01/09/17 20:00 21:54 03:49 WBC 27.6 H RBC 5.03 H Hgb 14.8 Hct 45.4 H MCV 90.3 MCH 29.4 MCHC 32.6 RDW 14.3 Plt Count 250 MPV 11.0 Immature Gran % 0.9 Seg Neutrophils % 85.2 Lymphocytes % 6.7 Monocytes % 7.0 Eosinophils % 0.0 Basophils % 0.2 Neutrophils # 23.5 H Lymphocytes # 1.9 Monocytes # 1.9 H Eosinophils # 0.0 Basophils # 0.1 Platelet Estimate Normal Sodium Potassium Chloride Carbon Dioxide BUN Creatinine Est GFR ( Amer) Est GFR (Non-Af Amer) BUN/Creatinine Ratio Glucose POC Glucose 366 H 272 H Calculated Osmolality Calcium Magnesium Total Bilirubin AST ALT Alkaline Phosphatase Serum Total Protein Albumin Globulin Albumin/Globulin Ratio 01/09/17 01/09/17 01/09/17 06:21 08:37 12:03 WBC RBC Hgb Hct MCV MCH MCHC RDW Plt Count MPV Immature Gran % Seg Neutrophils % Lymphocytes % Monocytes % Eosinophils % Basophils % Neutrophils # Lymphocytes # Monocytes # Eosinophils # Basophils # Platelet Estimate Sodium Potassium Chloride Carbon Dioxide BUN Creatinine Est GFR ( Amer) Est GFR (Non-Af Amer) BUN/Creatinine Ratio Glucose POC Glucose 201 H 213 H 224 H Calculated Osmolality Calcium Magnesium Total Bilirubin AST ALT Alkaline Phosphatase Serum Total Protein Albumin Globulin Albumin/Globulin Ratio 01/09/17 01/09/17 01/10/17 17:03 20:31 05:50 WBC 15.4 H RBC 4.52 Hgb 13.4 Hct 41.2 MCV 91.2 MCH 29.6 MCHC 32.5 RDW 14.4 Plt Count 205 MPV 11.3 Immature Gran % 0.8 Seg Neutrophils % 69.3 Lymphocytes % 18.4 Monocytes % 10.1 Eosinophils % 1.1 Basophils % 0.3 Neutrophils # 10.7 H Lymphocytes # 2.8 Monocytes # 1.6 H Eosinophils # 0.2 Basophils # 0.0 Platelet Estimate Sodium Potassium Chloride Carbon Dioxide BUN Creatinine Est GFR ( Amer) Est GFR (Non-Af Amer) BUN/Creatinine Ratio Glucose POC Glucose 235 H 295 H Calculated Osmolality Calcium Magnesium Total Bilirubin AST ALT Alkaline Phosphatase Serum Total Protein Albumin Globulin Albumin/Globulin Ratio 01/10/17 01/10/17 01/10/17 05:50 07:06 07:31 WBC RBC Hgb Hct MCV MCH MCHC RDW Plt Count MPV Immature Gran % Seg Neutrophils % Lymphocytes % Monocytes % Eosinophils % Basophils % Neutrophils # Lymphocytes # Monocytes # Eosinophils # Basophils # Platelet Estimate Sodium 136 Potassium 3.5 Chloride 102 Carbon Dioxide 26 BUN 10 Creatinine 0.89 Est GFR ( Amer) > 60 Est GFR (Non-Af Amer) > 60 BUN/Creatinine Ratio 11 Glucose 307 H POC Glucose 246 H 242 H Calculated Osmolality 293 Calcium 8.9 Magnesium 1.4 L Total Bilirubin 0.6 AST 11 ALT 14 Alkaline Phosphatase 121 Serum Total Protein 6.5 Albumin 2.9 L Globulin 3.6 H Albumin/Globulin Ratio 0.8 L 01/10/17 01/10/17 01/10/17 11:13 16:26 20:03 WBC RBC Hgb Hct MCV MCH MCHC RDW Plt Count MPV Immature Gran % Seg Neutrophils % Lymphocytes % Monocytes % Eosinophils % Basophils % Neutrophils # Lymphocytes # Monocytes # Eosinophils # Basophils # Platelet Estimate Sodium Potassium Chloride Carbon Dioxide BUN Creatinine Est GFR ( Amer) Est GFR (Non-Af Amer) BUN/Creatinine Ratio Glucose POC Glucose 227 H 288 H 207 H Calculated Osmolality Calcium Magnesium Total Bilirubin AST ALT Alkaline Phosphatase Serum Total Protein Albumin Globulin Albumin/Globulin Ratio 01/10/17 21:16 WBC RBC Hgb Hct MCV MCH MCHC RDW Plt Count MPV Immature Gran % Seg Neutrophils % Lymphocytes % Monocytes % Eosinophils % Basophils % Neutrophils # Lymphocytes # Monocytes # Eosinophils # Basophils # Platelet Estimate Sodium Potassium Chloride Carbon Dioxide BUN Creatinine Est GFR ( Amer) Est GFR (Non-Af Amer) BUN/Creatinine Ratio Glucose POC Glucose 184 H Calculated Osmolality Calcium Magnesium Total Bilirubin AST ALT Alkaline Phosphatase Serum Total Protein Albumin Globulin Albumin/Globulin Ratio Labs on day of discharge: Labs from last 24 hours 01/10/17 01/10/17 01/10/17 21:16 20:03 16:26 POC Glucose 184 H 207 H 288 H 01/10/17 11:13 POC Glucose 227 H Date of admission: 01/08/17 16:46 Primary care physician: Mireya Yoo, Consults: 01/09/17 07:50 Consult to Hospitalist [CONS] Stat Consulting Provider: Hospitalist Felipa Reason for Consult: uncontrolled type DM Call Completed: Yes 01/09/17 08:59 Consult to Filtration Supervisor [CONS] Routine Comment: Reason for Consult: poor diabetes control - Patient Status Disposition: Home, Self-Care Condition: Good Functional capacity at discharge: independent ambulation Overall status at discharge: patient is progressing back to baseline - Discharge Instructions Follow Up With: Mireya Yoo CNP [Primary Care Provider] - Hospital Course SPLASH LINE OPERATOR Time Attestation: Total time spent providing and/or coordinating discharge services: Exam - Constitutional Vitals: Temp Pulse Resp BP Pulse Ox 97.8 F 70 16 130/83 93 01/11/17 04:51 01/11/17 04:51 01/11/17 04:51 01/11/17 04:51 01/11/17 04:51 General appearance IM: A&O X 3 - Respiratory Respiratory exam: Present: CTAB - Cardiovascular Cardiovascular exam IM: Present: RRR - GI/Abdominal GI/Abdominal exam IM: normal bowel sounds, soft Incision: intact - VTE Documentation of Mechanical Device: Intermittent pneumatic compression device
[2017-01-11 09:30] VITALS: BP 151/93
== END 2017-01-11 08:50 | disposition home or self-care (01) | DRG 513 ==
LOC: SAMDAY 08:07 → 1NENUOBS 16:46
PROVIDERS: ADMIT Student in an Organized Health Care Education/Training Program; ATTEND Student in an Organized Health Care Education/Training Program